=== PATIENT | female | born 1965 | race Caucasian/White ===

== ENCOUNTER → 2018-06-08 | Outpatient (CLI) | payer BC | LOC: MC.RAD 14:38 | DX: Z12.31 Encounter for screening mammogram for malignant neoplasm of breast (principal) ==

== ENCOUNTER → 2019-08-13 | Outpatient (CLI) | payer BC | LOC: MC.RAD 08:58 | DX: Z12.31 Encounter for screening mammogram for malignant neoplasm of breast (principal) ==

== ENCOUNTER 2022-02-19 13:37 | Inpatient (IN) | payer BC ==
[~2022-02-19] VITALS: Ht 157.5 cm; Wt 128.8 kg
[2022-03-06] VITALS (11 sets, daily range): BP systolic 113–151; BP diastolic 56–94; PULSE 61–90; TEMP 97.6–98.6
[2022-03-06] MEDS ORDERED: ESTRACE 1MG1 MG/TAB PO (08:44)
[2022-03-06] MEDS ORDERED: TOPROL XL 25MG25 MG PO (08:44)
[2022-03-06] MEDS ORDERED: COZAAR100 MG PO (08:45)
[2022-03-06] MEDS ORDERED: LIPITOR20 MG PO (08:45)
[2022-03-06] MEDS ORDERED: PROVENTIL0.09 MG/A1 IH (08:46)
[2022-03-06] MEDS ORDERED: GLUCOPHAGE500 MG/TAB PO (08:47)
[2022-03-06] MEDS ORDERED: RESTORIL30 MG PO (08:47)
[2022-03-06] MEDS ORDERED: NORCO 325 MG-51 TAB PO (08:49)
[2022-03-06] MEDS ORDERED: XANAX 0.5MG0.5 MG PO (08:49)
[2022-03-06] MEDS ORDERED: FLONASEALLERGY NS (08:50)
[2022-03-06] MEDS ORDERED: CLARITIN 1010 MG/TAB PO (08:50)
--- NOTE | 2022-03-06 09:17 | NUR ---
Patient takes a 25 mg Metoprolol tablet daily at home. She last took a dose on 03/05/22 at 0800. Her BP is 151/94, HR 90. This is reported to José Mueller CRNA, who orders a one time dose of 25 mg Metoprolol tablet PO pre-op.
--- NOTE | 2022-03-06 10:16 | NUR ---
Patient goes to the OR with COLUMBA Sen at this time. Her belongings bag x1 is taken to the PACU.
--- NOTE | 2022-03-06 16:56 | NUR ---
PATIENT BROUGHT TO FLOOR AT APPROX 1445. PATIENT DENIES PAIN. PATIENT REPORTS MILD NAUSEA. ASSESSMENT PERFORMED. PATIENT ORIENTED TO FLOOR AND ROOM. ELEVATOR REPAIRER APPRENTICE SET UP, PATIENT EDUCATION ON USE. IV FLUIDS, ELEVATOR REPAIRER APPRENTICE, AND ABX RUNNING THROUGH RIGHT WRIST. 5 LAP SITES CDI WITH BANDAIDS. URBIE TO DD WITH GOOD OUTPUT. PATIENT IN BED WITH CALL LIGHT NEAR.
[2022-03-07] VITALS (7 sets, daily range): BP systolic 114–140; BP diastolic 61–76; PULSE 58–85; TEMP 98.3–98.7
--- NOTE | 2022-03-07 00:27 | NUR ---
PATIENT ALERT AND ORIENTED. HS MEDS PER EMAR, HELD STOOL SOFTENER SINCE PATIENT IS NPO UNTIL AFTER BARRIUM SWALLOW. JUNIOR SYSTEMS ANALYST DILAUDID IN PLACE AND CONTROLLING PAIN PER PATIENT. PATIENT UP AND AMBULATED IN HALLS. URIBE TO DD WITH CLEAR YELLOW OUTPUT. X4 LAPS CDI WITH BANDAIDS, X1 RUQ LAP SITE HAD SOME BLOODY DRAINAGE NOTED ON BANDAID, THIS WAS CLEANED AND NEW BANDAID APPLIED. NADIA DRAIN SITE CDI, NADIA DRAIN HAS BLOODY OUTPUT. PATIENT DENIES ADDITIONAL NEEDS, CALL LIGHT IN REACH.
[2022-03-07 06:33] LABS: BASO % 0.1 % (0.0-2.0); GRAN % 83.8 % (42.2-75.2); HEMATOCRIT 39.6 % (37.0-47.0); LYMPH % 8.6 % (20.0-51.0); MEAN CELL VOLUME 87 fl (80.0-100.0); MEAN CORPUSCULAR HEMOGLOBIN 26 pg (27-31); MEAN CORPUSCULAR HGB CONC 30 g/dl (33.0-37.0); MEAN PLATELET VOLUME 10.6 fl (7.4-10.4); MONO # 0.9 K/mm3 (0.1-0.6); MONO % 7.2 % (1.7-9.3); PLATELET COUNT 247 K/mm3 (130-400); RED BLOOD COUNT 4.56 M/mm3 (4.10-5.30); REDCELL DISTRIBUTION WIDTH-CV 15.7 % (11.5-14.5)
[2022-03-07 07:01] LABS: ALBUMIN 2.9 gm/dL (3.5-5.0); BILIRUBIN,TOTAL 0.4 mg/dL (0.2-1.2); CALCIUM 8.7 mg/dL (8.4-10.2); CREATININE, serum 0.61 mg/dL (0.57-1.11); POTASSIUM 4.1 mmol/L (3.5-4.5); TOTAL PROTEIN 5.8 gm/dL (6.2-8.1)
--- NOTE | 2022-03-07 11:32 | NUR ---
PT A&O X4, ABLE TO MAKE NEEDS KNOWN, PT UP TO CHAIR THIS AM, PT REPORTS PAIN TO ABDOMEN, NADIA DRAIN IN PLACE DRAINING BLOODY DRAINAGE, FALL PRECAUTIONS IN PLACE, CALL LIGHT IN REACH
--- NOTE | 2022-03-07 12:23 | NUR ---
industrial relations worker met with patient to complete intake and discuss discharge plan. Patient reports that she lives at home alone in [place]. She is independent with her ADL's and does not utilize any DME to assist with mobility. Patient is currently on OR oxygen but does not utilize oxygen at home. PCP is and she utilizes [facility] pharmacy for prescriptions with no cost difficulty. Patient reports that she does not have a DPOA-HC estbalished. Education provided and the verbalizes her understanding. Patient is planning on returning home once medically ready. Discharge plan: Home
--- NOTE | 2022-03-07 13:03 | NUR ---
Initial visit; Patient thanked Bag End Sewer for looking in on her and visiting. Alize was receptive to prayer and thanked Bag End Sewer for her prayer and offering God's blessings.
--- NOTE | 2022-03-07 19:30 | NUR ---
RECEIVED CHANGE OF SHIFT REPORT FROM DAY SHIFT RN.
[2022-03-08] VITALS: BP 132/68; PULSE 74
--- NOTE | 2022-03-08 00:39 | NUR ---
HAVING LOOSE STOOL THIS EVENING AND PASSING URINE WITH NO REPORTED PROBLEMS. IV FLUIDS AND ANIMAL SHELTER WORKER CONTINUES. VOIDING WITH NO REPORTED PROBLEMS. NADIA DRAIN IN PLACE.
[2022-03-08 03:28] VITALS: BP 130/60; PULSE 76; TEMP 98.3
[2022-03-08 05:00] VITALS: BP 130/60; PULSE 76
[2022-03-08 07:36] VITALS: BP 124/64; PULSE 87; TEMP 98.8
--- NOTE | 2022-03-08 09:33 | NUR ---
VSS,PT A&O X4, LAP SITES DRESSED WITH BANDAIDS, NADIA DRESSED WITH GAUZE, PT AMBULATED APPROXIMATELY 60FT THIS AM WITH SBA AND WALKER, TRANSFERS FROM BED TO STANDING INDEPENDENTLY, PT TOLERATING CLEAR LIQUID PO INTAKE, PT DENIES NAUSEA, REPORTS PAIN 3/10, PT SITTING UP IN CHAIR, CALL LIGHT IN REACH, FALL PRECAUTIONS IN PLACE
[2022-03-08 12:08] VITALS: BP 119/53; PULSE 70; TEMP 98.6
[2022-03-08] MEDS ORDERED: ZOFRAN 4MG T4 MG/TAB PO (14:42)
[2022-03-08] MEDS ORDERED: NORCO 325 MG-51 TAB PO (14:43)
[2022-03-08] MEDS ORDERED: PRILOSEC 20MG20 MG PO (14:43)
--- NOTE | 2022-03-08 16:22 | NUR ---
DRAIN DC'D, BLOODY OUTPUT 20CC, IV DC'D, WITH NO COMPLICATIONS
--- NOTE | 2022-03-08 17:24 | NUR ---
PT DISMISSED TO HOME TODAY, PT AND SON EDUCATED ON DISMISSAL INSTRUCTIONS/MEDICATION INSTRUCTIONS/FOLLOW UP INSTRUCTIONS/DIET INSTRUCTIONS, PT AND SON VOICED NO QUESTIONS/CONCERNS AT TIME OF DISMISSAL, PT TRANSPORTED TO EXIT PER , NO FURTHER CONCERNS
== END 2022-03-08 17:26 | disposition home or self-care (01) | DRG 620 ==
LOC: INPTSU 03-06 07:55 → SURG 03-06 07:55
PROVIDERS: ADMIT Surgery
PROC: 0DNU4ZZ Release Omentum, Percutaneous Endoscopic Approach (ICD-10-PCS; 2022-03-06)
PROC: 0D164ZA Bypass Stomach to Jejunum, Percutaneous Endoscopic Approach (ICD-10-PCS; principal; 2022-03-06 10:00)
DX: E88.81 Metabolic syndrome and other insulin resistance (principal); Z68.43 Body mass index [BMI] 50.0-59.9, adult; E66.01 Morbid (severe) obesity due to excess calories; G89.29 Other chronic pain; E11.9 Type 2 diabetes mellitus without complications; I10 Essential (primary) hypertension; M17.0 Bilateral primary osteoarthritis of knee; M25.562 Pain in left knee; M25.561 Pain in right knee; F32.A Depression, unspecified; E78.5 Hyperlipidemia, unspecified; F41.9 Anxiety disorder, unspecified; Z98.51 Tubal ligation status; Z88.8 Allergy status to other drugs, medicaments and biological substances; Z79.4 Long term (current) use of insulin; Z91.041 Radiographic dye allergy status; Z90.710 Acquired absence of both cervix and uterus; Z87.891 Personal history of nicotine dependence
CPT/HCPCS: A4314; C9113; J0690; J1100; J1170; J1200; J1650; J1956; J2250; J2405; J2550; J2704; J3010; J3480; J7120

== ENCOUNTER 2024-04-28 12:00 | Day surgery (SDC) | payer BC ==
[~2024-04-28] VITALS: Ht 160 cm; Wt 77.6 kg
[~2024-04-28 12:00] MED LIST: AMOXICILLIN 50500 MG PO; CELEXA 20MG20 MG/TAB PO; CELEXA40 MG PO; CEPHALEXIN500 M1 PO; CLARITIN 1010 MG/TAB PO; COZAAR 50MG50 MG/TAB PO; COZAAR100 MG PO; ESTRACE 1MG1 MG/TAB PO; FLONASEALLERGY NS; Famotidine 20 MG TAB PO SCH; GLUCOPHAGE500 MG/TAB PO; K-TAB10 PO; LIPITOR20 MG PO; LOVENOX 4040 MG/0.4 SQ; LR 1,000 ML IV SCH; MULTI VITAMINS1 TAB PO; NEURONTIN300 MG/CAP PO; NORCO 325 MG-51 TAB PO; PERCOCET 325 MG1 TA2 PO; PRILOSEC 20MG20 MG PO; PROVENTIL0.09 MG/A1 IH; RESTORIL30 MG PO; TOPROL XL 25MG25 MG PO; XANAX 0.5MG0.5 MG PO; ZOFRAN 4MG T4 MG/TAB PO
--- NOTE | 2024-04-28 12:45 | NUR ---
The patient ambulated back to [facility] [address] independently using a steady gait and appeared to tolerate the activity well. Vital signs otbained. Consent signed. 18G IV started in left wrist with one stick, LR infusing without difficulty. Assessment completed. Home medications reconcilled. Warm blanket provided. Son, Thong, brought back to be at her bedside. The patient denies any further needs at this time.
[2024-04-28 12:52] VITALS: BP 138/94; PULSE 72; TEMP 98
[2024-04-28] MEDS ORDERED: fentaNYL 50 MCG/ML 2 ML VIAL ONE (13:43)
[2024-04-28] MEDS ORDERED: NS 10 ML IV ONE (13:44)
[2024-04-28] MEDS ORDERED: Lidocaine PF 2% (20 MG/ML) 5 ML VIAL ONE (13:44)
[2024-04-28] MEDS ORDERED: Ondansetron 4 MG/2 ML VIAL ONE (13:44)
[2024-04-28] MEDS ORDERED: Glycopyrrolate 0.2 MG/ML 1 ML VIAL ONE (13:44)
[2024-04-28] MEDS ORDERED: dexAMETHasone 10 MG/ML VIAL ONE (13:44)
[2024-04-28] MEDS ORDERED: Morphine 2 MG/1 ML VIAL [PACU/SDC ONLY] IV PRN (13:45)
[2024-04-28] MEDS ORDERED: HYDROmorphone 1 MG/1 ML SYRINGE [PACU/SDC ONLY] IV PRN (13:45)
[2024-04-28] MEDS ORDERED: Meperidine 50 MG/ML 1 ML VIAL IV PRN (13:45)
[2024-04-28] MEDS ORDERED: Ondansetron 4 MG/2 ML VIAL IV PRN ×2 (13:45→15:00)
[2024-04-28] MEDS ORDERED: Acetaminophen 325 MG TAB PO PRN (15:00)
[2024-04-28] MEDS ORDERED: Naloxone 0.4 MG/ML VIAL IV PRN (15:00)
[2024-04-28] MEDS ORDERED: Hyoscyamine 0.125 MG Sublingual TAB SL PRN (15:00)
[2024-04-28] MEDS ORDERED: Iohexol 350 - 100 ML VIAL URETER-B ONE (15:26)
[2024-04-28 16:10] VITALS: BP 105/58; PULSE 65; TEMP 97.6
[2024-04-28 16:25] VITALS: BP 130/61; PULSE 58
[2024-04-28 16:40] VITALS: BP 125/72; PULSE 66
[2024-04-28 16:42] VITALS: BP 105/58; PULSE 70; TEMP 98.2
--- NOTE | 2024-04-28 18:31 | NUR ---
1610: PT TO [facility] FROM PACU. ALERT AND ORIENTED. VSS. REPORT RECEIVED FROM COLUMBA CARTER. PT DENIES PAIN OR NAUSEA. TOLERATING ICE CHIPS. AMBULATED TO BR WITH STAND-BY ASSIST. URINATED CLEAR BLOOD TINGED URINE. RESTING IN COT. WARM BLANKET PROVIDED. PT REQUESTING APPLESAUCE. NO FURTHER NEEDS NOTED. CALL LIGHT IN REACH. IBIS RANGEL, AT BEDSIDE. 1625: PT ALERT AND ORIENTED. VSS. TOLERATING APPLESAUCE AND WATER. DENIES NAUSEA AND PAIN. AMBULATED TO BATHROOM WITH STAND-BY ASSIST. RESTING IN COT. CALL LIGHT IN REACH. IBIS RANGEL, AT BEDSIDE. 1640: PT ALERT AND ORIENTED. VSS. CONTINUES TO DENY NAUSEA. C/O RIGHT FLANK PAIN. RESTING IN COT. CALL LIGHT IN REACH. IBIS RANGEL, AT BEDSIDE. 1650: DR. GERMAIN NOTIFED OF PT PAIN AND ASKED IF HE WANTED TO SEND ANY PAIN MEDICATIONS TO THE PHARMACY. HE STATED NOT AT THIS TIME. TO GIVE THE ORDERED ACETAMINOPHEN AND TO ROTATE WITH IBUPROPHEN. IF THIS DID NOT MANAGE PAIN OVERNIGHT TO CONTACT HIS OFFICE IN THE MORNING FOR PAIN MEDICATION. 1700: PRN ACETAMINOPHEN GIVEN ORDERED. PT STATED SHE CAN NOT TAKE IBUPROPHEN. EDUCATED PT TO TAKE THE ACETAMINOPHEN ONLY FOR PAIN MANAGEMENT. PT STATED UNDERSTANDING. IV DC'D AT THIS TIME. PT DENIES ASSISTANCE DRESSING. 1710: DISCHARGE EDUCATION COMPLETE AT THIS TIME. PT STATED UNDERSTANDING OF DISCHARGE INSTRUCTIONS. QUESTIONS WELCOMED AND ANSWERED. DISCHARGE PAPERWORK GIVEN TO PT. 1715: PT OFF UNIT AT THIS TIME. PT DISCHARGED TO HOME VIA PERSONAL VEHICLE WITH IBIS RANGEL.
== END 2024-04-28 17:15 | disposition home or self-care (01) ==
LOC: SDCO 12:00
DX: N20.2 Calculus of kidney with calculus of ureter (principal); Z87.891 Personal history of nicotine dependence; E11.9 Type 2 diabetes mellitus without complications
CPT/HCPCS: C1726; C1769; C1894; C2617; J0690; J1100; J2405; J2704; J3010; J7120; Q9967